=== PATIENT | female | born 1965 | race Caucasian/White ===

== ENCOUNTER → 2025-04-26 01:36 | Outpatient (CLI) | payer BC, SELFPAY ==
--- NOTE | 2025-04-26 07:00 | DI.US_ITS ---
Exam(s) US NEEDLE LOCAL OTHER WO RAD EXAM: 3 nodules meeting criteria for biopsy,multinodular thyroid,e04.2,ultrasound COMPARISON: No exams were available for comparison TECHNIQUE: Ultrasound performed using standard protocol. FINDINGS: Sonography was provided for Dr. Mistry during the performance of a ultrasound- guided thyroid nodule biopsies. Please refer to the procedure report for complete details. DATA REPOSITORY:
--- NOTE | 2025-04-26 12:30 | PAPNONF_PTH ---
PATIENT: Coretta Ennis LOC: [facility] U#:[id number] AGE/SX: 59/F ROOM: RE04/26/[address]: Robert Mistry MD : [id number] BED: DIS: SPEC #: [id number] RECD: 04/26/25 13:21 STATUS: HIRAM RENica #: [id number] JANINE: 04/26/25 12:[address]: Robert Mistry [facility]PT[facility] Cytology RECD BY: Estrellita Muro ENTERED: 04/26/25 13:24 SP TYPE: DANIELE BENITO DR: Laly Funez Tissues: 1 - BODY FLUID CYTO-FINE NEEDLE [facility] 2 - BODY FLUID CYTO-FINE NEEDLE [facility] 3 - BODY FLUID CYTO-FINE NEEDLE [facility] Procedures: BODY FLUID CYTO-FINE NEEDLE [facility]IRATE[facility] Comments: [id number] (PATH FNA CONSULT) (REFRIGERATED)
--- NOTE | 2025-04-26 13:17 | W.PROCNOTE ---
Date of service: 04/26/25 Time of Service: 13:17 Procedure Note Date of procedure: 04/26/25 Procedure: Ultrasound-guided FNA, thyroid nodule x 3, pathology present Surgeon/Proceduralist/Physician: Robert Mistry Procedure Diagnosis: Isthmus and right thyroid nodule x 2 Procedure Indications: Patient has 3 right-sided thyroid nodules meeting criteria for biopsy. Options were explained to the patient regarding further management. She elected to undergo the above procedure. Consent was filled and signed prior to the procedure. Risks and benefits were reviewed in detail. Procedure Description: The patient was positioned in supine position with her neck slightly extended. She was prepped and draped in appropriate fashion and ultrasound used to localize each thyroid nodule. The isthmus nodule was approached first, the right superior thyroid nodule second, and the right inferior nodule third. 2% lidocaine with 1/100,000 epinephrine was injected in the skin and subcutaneous tissues overlying each thyroid nodule along the medial aspects. 25-gauge needles were then passed into the thyroid nodule in each location, and the aspirate handed to pathology who verified adequate cellularity. After verifying adequate cellularity, 2 additional passes were made into each nodule for potential Afirma testing. The patient tolerated the procedure well at all 3 sites. After ensuring adequate hemostasis, sterile dressings were applied to each site. The patient was then allowed to sit, stand, and then ambulate. Her vital signs remained stable. She will remove the bandages in the next hour. She will avoid any strenuous activity today and may use ibuprofen or Tylenol if needed for discomfort. She will call with any signs of infection or any concerns or if she does not hear from me within 1 week with regard to pathology. Further care will depend upon the findings on pathology. She had no further questions. She is comfortable with this plan.
== END ==
LOC: DI 01:36
PROVIDERS: PCP Internal Medicine; Visit Provider Otolaryngology
DX: E04.2 Nontoxic multinodular goiter (principal); E07.9 Disorder of thyroid, unspecified
CPT/HCPCS: 10005; 10006; 76942; 88104